=== PATIENT | female | born 1975 | race Two or more races ===

== ENCOUNTER 2021-02-04 08:20 | Inpatient (IN) | payer OTHER ==
[~2021-02-04] VITALS: Ht 160 cm; Wt 55.3 kg
[2021-02-04] MEDS ORDERED: XANAX2 MG (08:37)
[2021-02-04] MEDS ORDERED: LEVO-T125 MCG (08:38)
== END 2021-02-05 21:47 | disposition left against medical advice (07) | DRG 641 ==
LOC: ER 08:20 → MEDJ 16:34
PROVIDERS: ADMIT Internal Medicine; ATTEND Internal Medicine
DX: E86.0 Dehydration (principal); E87.1 Hypo-osmolality and hyponatremia; F43.0 Acute stress reaction; F41.1 Generalized anxiety disorder; F43.12 Post-traumatic stress disorder, chronic; E03.8 Other specified hypothyroidism